=== PATIENT | female | born 1940 | race Caucasian/White ===

== ENCOUNTER → 2023-08-22 | Outpatient (CLI) | payer MEDICARE, OTHER ==
[~2023-08-22] MED LIST: HYDCHL25; LEVFLO500 PO; LISHYD1012; LISI10; SIMV10; [UNRECOGNIZED DRUG - OTHER]
== END | disposition home or self-care (01) ==
LOC: LAB 13:01 → LAB SHORT 13:01
DX: N39.0 Urinary tract infection, site not specified (principal)
CPT/HCPCS: 87077; 87086; 87186

== ENCOUNTER 2024-03-03 07:39 | Day surgery (SDC) | payer MEDICARE, OTHER ==
[~2024-03-03] VITALS: Ht 160 cm; Wt 55.2 kg
[~2024-03-03 07:39] MED LIST changes: +Balanced Salt Epinephrine Irrigation Solution 500 mL IR SCH; +Lidocaine HCl/Pf 1% 5 ML VIAL ONE; +Lidocaine HCl/Pf 1% 5 ML VIAL XX SCH; +Moxifloxacin HCL 0.5 MG/0.1 ML 0.4MLSYR RIGHTEYE SCH; +NS 500 ML IV ONE; +PHENYLEPHRINE\\TROPICAMIDE\\TETRACAINE OPHTHALMIC DILATING SOLN RIGHTEYE PRN; +Povidone-Iodine 450 DROP/30 ML Solution RIGHTEYE SCH; +Triamcinolone Inj Susp 40 MG / ML 1ML Vial INJ SCH; +Triamcinolone Inj Susp 40 MG / ML 1ML Vial ONE
[2024-03-03] MEDS ORDERED: DEXLANSOPRAZOLE30 MG PO (08:06)
[2024-03-03] MEDS ORDERED: CELEXA10 MG PO (08:06)
[2024-03-03] MEDS ORDERED: PRAV20 (08:08)
[2024-03-03] MEDS ORDERED: RIVASTIGMINE1 EAC3 TD (08:08)
[2024-03-03] MEDS ORDERED: AMLODIPINE BESY10 MG PO (08:08)
[2024-03-03] MEDS ORDERED: DICLOFENAC SODI50 GM TP (08:08)
[2024-03-03] MEDS ORDERED: QUETIAPINE FUMA25 MG PO (08:08)
[2024-03-03] MEDS ORDERED: METO100ER PO (08:09)
[2024-03-03] MEDS ORDERED: FUROSEMIDE20 MG PO (08:09)
[2024-03-03] MEDS ORDERED: OMEP20ER PO (08:09)
[2024-03-03] MEDS ORDERED: MELA3 PO (08:09)
[2024-03-03] MEDS ORDERED: NITROGLYCERIN0.4 M3 (08:10)
[2024-03-03] MEDS ORDERED: ACET500 (08:10)
[2024-03-03] MEDS ORDERED: FERSU300 PO (08:10)
--- NOTE | 2024-03-03 08:28 | NUR ---
03/03/24 0828 Yola Lara AT 0812 PLEDGET AT 0813
[2024-03-03] MEDS ORDERED: NS 500 ML IV ONE (08:31)
[2024-03-03] MEDS ORDERED: Midazolam HCl 1MG / ML 2ML Vial ONE (08:51)
[2024-03-03] MEDS ORDERED: Tetracaine HCl 0.5% Opth Soln 15 ml RIGHTEYE ONE (08:54)
[2024-03-03 10:45] VITALS: BP 147/66
--- NOTE | 2024-03-03 10:46 | NUR ---
03/03/24 1046 Marcos Foster PT [facility]UB[facility]. D/C INSTRUCTIONS REVIEW WITH PT AND DAUGHTER (POA). PT AND DAUGHTER ADVISED TO MONITOR B/P AT HOME , AND FOLLOW UP WITH PCP IF NEEDED.
== END 2024-03-03 09:35 | disposition home or self-care (01) ==
LOC: ORSCSDS 07:39
PROVIDERS: Ophthalmology
PROC: 08RJ3JZ Replacement of Right Lens with Synthetic Substitute, Percutaneous Approach (ICD-10-PCS; principal; 2024-03-03 09:00)
DX: H25.813 Combined forms of age-related cataract, bilateral (principal); I10 Essential (primary) hypertension; F03.90 Unspecified dementia, unspecified severity, without behavioral disturbance, psychotic disturbance, mood disturbance, and anxiety; Z79.899 Other long term (current) drug therapy
CPT/HCPCS: J2001; J2250; J3301; J7040; V2632